=== PATIENT | male | born 1945 | race Caucasian/White ===

== ENCOUNTER → 2024-02-21 11:43 | Outpatient (CLI) | payer MEDICARE, OTHER, SELFPAY ==
--- NOTE | 2024-02-21 11:46 | DI.CT.S_ITS ---
PROCEDURE: CT CHEST WO CON INDICATIONS: ANEURYSM OF ASCENDING AORTA W/O RUPTURE TECHNIQUE: Noncontrast 5 mm thick sections acquired from the pulmonary apices to the posterior costophrenic angles. 1 mm lung window, 5 mm thick coronal and sagittal and 7 mm axial MIP reformats were then acquired. For radiation dose reduction, the following was used: automated exposure control, adjustment of mA and/or kV according to patient size. COMPARISON: None. FINDINGS: Image quality: Diagnostic. Lower Neck: No enlarged lymph nodes. Thyroid: No thyroid nodules which require sonographic follow up, per consensus guidelines. Axillae: No enlarged lymph nodes. Chest Wall: Unremarkable. Bones: No aggressive appearing bony lesions. Lungs and Pleura: No pneumothorax or pleural effusions. Scattered scarring/atelectasis in lateral periphery of right lung base is seen. Mild dependent atelectasis are noted in posterior aspect of bilateral lung bases. No consolidation or suspicious nodules. Heart: Heart size is enlarged. No pericardial effusion. Thoracic Vessels: There is ascending thoracic aortic aneurysm measures up to 4.9 cm in largest AP diameter series 2, image 27 just proximal to the aortic arch. Descending thoracic aorta is normal in size. Prominent size of main pulmonary artery which can be seen associated with pulmonary vascular hypertension. Mediastinum and Keri: No enlarged lymph nodes. Calcified lymph no in left hilar region is seen. Esophagus: No wall thickening. No hiatal hernia. Upper Abdomen: Multiple simple appearing cysts are seen scattered in visualized portion of liver parenchyma. IMPRESSION: 1. Ascending thoracic aortic aneurysm measures up to 4.9 cm in largest AP diameter just proximal to aortic arch. Descending thoracic aorta is normal in size. 2. Prominent size of main pulmonary artery which can be seen associated with pulmonary vascular hypertension. Cardiomegaly, no pericardial effusion. 3. Calcified lymph node is seen in left hilar region. No mediastinal or hilar lymphadenopathy. 4. Dependent atelectasis in bilateral lung bases. Scattered scarring/atelectasis seen in lateral aspect of right lung base. No pleural effusion or pneumothorax. No suspicious pulmonary nodules. Dictated by: Servando Mccallum M.D. on 02/21/2024 at 16:51 Approved by: Servando Mccallum M.D. on 02/21/2024 at 17:03
== END ==
LOC: CT 11:45
PROVIDERS: PCP Nurse Practitioner Family; Referring Provider Internal Medicine; Visit Provider Internal Medicine
DX: I71.21 Aneurysm of the ascending aorta, without rupture (principal); I51.7 Cardiomegaly; K76.89 Other specified diseases of liver; J98.11 Atelectasis
CPT/HCPCS: 71250

== ENCOUNTER → 2025-02-17 09:33 | Outpatient (CLI) | payer MEDICARE, OTHER, SELFPAY ==
--- NOTE | 2025-02-17 09:35 | DI.CT.S_ITS ---
PROCEDURE: CT CHEST WO CON INDICATIONS: ANERUYSM TECHNIQUE: Noncontrast 5 mm thick sections acquired from the pulmonary apices to the posterior costophrenic angles. 1 mm lung window, 5 mm thick coronal and sagittal and 7 mm axial MIP reformats were then acquired. For radiation dose reduction, the following was used: automated exposure control, adjustment of mA and/or kV according to patient size. COMPARISON: [facility], CT, CT CHEST WO CON, 02/21/2024, 12:08. FINDINGS: Image quality: Diagnostic Lungs and pleura: Scattered scarring and atelectasis. No airspace consolidation or pleural effusion. A few micro nodules/granulomas appears stable for example right lung image 6/37. Left upper lobe suture lines. Mediastinum, heart, and esophagus: Small hiatal hernia. The ascending aorta at the level of the main pulmonary artery measures 4.9 cm as before. 3.7 cm main pulmonary trunk. Coronary calcifications. Aortic valvular and cardiac annular calcifications. No lymph nodes enlarged by size criteria. Left hilar calcified nodes again seen. Cardiomegaly. Chest wall and thyroid: Unremarkable Upper abdomen: Scattered liver cysts. Mild pancreatic atrophic changes. No ductal dilation. Colonic diverticula Bones: There are degenerative osseous changes. IMPRESSION: Unchanged diameter of the ascending aorta measuring up to 4.9 cm on this noncontrast study. Dilated main pulmonary trunk also again seen, which can be associated with high pulmonary pressures. Other findings above. Dictated by: Donis Baker M.D. on 02/17/2025 at 11:40 Approved by: Donis Baker M.D. on 02/17/2025 at 11:44
== END ==
PROVIDERS: PCP Nurse Practitioner Family; Referring Provider Nurse Practitioner Family; Visit Provider Internal Medicine
DX: I71.21 Aneurysm of the ascending aorta, without rupture (principal); K44.9 Diaphragmatic hernia without obstruction or gangrene; I25.10 Atherosclerotic heart disease of native coronary artery without angina pectoris; I51.7 Cardiomegaly; K76.89 Other specified diseases of liver; K57.90 Diverticulosis of intestine, part unspecified, without perforation or abscess without bleeding
CPT/HCPCS: 71250